=== PATIENT | male | born 1945 | race Caucasian/White ===

== ENCOUNTER → 2016-10-30 | Outpatient (CLI) | payer MEDICARE, OTHER ==
[2016-10-30 09:43] LABS: HEMOGLOBIN 15.2 gm/dl (14.0-17.5); RED BLOOD COUNT 5.26 M/UL (4.20-5.50); WHITE BLOOD COUNT 7.4 K/UL (4.5-11.0)
[2016-10-30 10:19] LABS: BUN/CREATININE RATIO 18 (0-10)
== END ==
LOC: LAB 08:29
PROVIDERS: Physician Assistant
DX: Z02.89 Encounter for other administrative examinations (principal); I10 Essential (primary) hypertension; E78.5 Hyperlipidemia, unspecified; Z79.899 Other long term (current) drug therapy
CPT/HCPCS: 36415; 80053; 80061; 84439; 84443; 85025